=== PATIENT | male | born 1990 | race American Indian/Alaskan Native ===

== ENCOUNTER 2020-07-14 19:45 | Emergency (ER) | payer BC ==
[2020-07-14] MEDS ORDERED: FLUORESCEIN 1 MG STRIP OP ONE (20:24)
[2020-07-14] MEDS ORDERED: TETRACAINE 0.5% OPHTH SOLN 4ML OU PRN (20:24)
--- NOTE | 2020-07-14 21:06 | Emergency Department Report ---
ED General Adult HPI - General Chief complaint: Eye Problems Stated complaint: SEVERE RT EYE PAIN Time Seen by Provider: 07/14/20 20:24 Source: patient Mode of arrival: Ambulatory Limitations: No Limitations - History of Present Illness Initial comments: 29-year-old -[place] male patient presents with complaints of right eye pain starting yesterday. Patient states while riding on the back of the [employer] at work, something flew in his eye and he began to rub it vigorously. He states he later developed pain and sensitivity to light. He rates his current pain is 8/10 in severity and states it improves when not exposed to light. He denies any drainage, vision changes, swelling, or headache. No past medical history per patient. He denies wearing contact lenses. -: Sudden - Related Data Previous Rx's Medication Instructions Recorded Last Taken Type Acetaminophen/Codeine [Tylenol 1 tab PO Q8H PRN #6 tab 07/14/20 Unknown Rx /Codeine # 3 tab] Erythromycin [Erythromycin Ophth 1 cm OU Q3H #1 tube 07/14/20 Unknown Rx Oint] Ibuprofen [Motrin 800 MG tab] 800 mg PO Q8HR PRN #20 tablet 07/14/20 Unknown Rx Allergies Allergy/AdvReac Type Severity Reaction Status Date / Time No Known Allergies Allergy Unverified 07/14/20 20:15 ED Review of Systems ROS: Stated complaint: SEVERE RT EYE PAIN Other details as noted in HPI Constitutional: denies: malaise Eyes: eye pain. denies: eye discharge, vision change ENT: denies: ear pain, throat pain, dental pain Hematological/Lymphatic: denies: swollen glands ED Past Medical Hx - Past Medical History Previous Medical History?: No - Surgical History Past Surgical History?: No - Social History Smoking Status: Never Smoker - Medications Home Medications: Home Medications Medication Instructions Recorded Confirmed Last Taken Type Acetaminophen/Codeine [Tylenol 1 tab PO Q8H PRN #6 tab 07/14/20 Unknown Rx /Codeine # 3 tab] Erythromycin [Erythromycin Ophth 1 cm OU Q3H #1 tube 07/14/20 Unknown Rx Oint] Ibuprofen [Motrin 800 MG tab] 800 mg PO Q8HR PRN #20 tablet 07/14/20 Unknown Rx ED Physical Exam - General Limitations: No Limitations General appearance: alert - Head Head exam: Present: atraumatic, normocephalic - Eye Eye exam: Present: PERRL, EOMI. Absent: scleral icterus, periorbital swelling - Expanded Eye Exam Expanded Eyelids: Normal Inspection: Right Sclera/Conjunctival: Injection: Right (1 mm corneal abrasion noted at approximately 9:00 on the iris; eyelid everted and swept and no foreign bodies noted; no exudate noted) - ENT ENT exam: Present: mucous membranes moist - Respiratory Respiratory exam: Absent: respiratory distress - Cardiovascular Cardiovascular Exam: Present: regular rate - Neurological Exam Neurological exam: Present: alert, oriented X3 - Psychiatric Psychiatric exam: Present: normal affect, normal mood - Skin Skin exam: Present: warm, dry, intact, normal color. Absent: rash ED Course Vital Signs 07/14/20 07/14/20 07/14/20 20:13 20:17 21:47 Temperature 98.6 F 98.6 F 98.7 F Pulse Rate 73 70 63 Respiratory 18 20 16 Rate Blood Pressure 151/92 151/92 151/84 O2 Sat by Pulse 96 96 99 Oximetry ED Medical Decision Making - Medical Decision Making 29-year-old -[place] male patient presents with complaints of right eye pain starting yesterday. Patient states while riding on the back of the [employer] at work, something flew in his eye and he began to rub it vigorously. He states he later developed pain and sensitivity to light. He rates his current pain is 8/10 in severity and states it improves when not exposed to light. He denies any drainage, vision changes, swelling, or headache. No past medical history per patient. He denies wearing contact lenses. Tiny corneal abrasion noted on Swenson lamp exam. Will treat with erythromycin and pain medication. Patient to follow-up with ophthalmology as needed. Discussed signs and symptoms that should prompt immediate return to the emergency department in detail with patient who verbalized understanding. He is well-appearing, his vitals are within normal limits, he is stable for discharge home. Critical care attestation.: If time is entered above; I have spent that time in minutes in the direct care of this critically ill patient, excluding procedure time. ED Disposition Clinical Impression: Right corneal abrasion, Elevated blood pressure reading without diagnosis of hypertension Disposition: - TO HOME OR SELFCARE Is pt being admited?: No Condition: Stable Instructions: Corneal Abrasion, Hypertension, Adult, [id number] Prescriptions: Erythromycin [Erythromycin Ophth Oint] 1 cm OU Q3H #1 tube Ibuprofen [Motrin 800 MG tab] 800 mg PO Q8HR PRN #20 tablet PRN Reason: pain Acetaminophen/Codeine [Tylenol /Codeine # 3 tab] 1 tab PO Q8H PRN #6 tab PRN Reason: Pain , Severe (7-10) Referrals: SHAHIDA CAMPOS MD [Staff Physician] - as needed [facility] [Provider Group] - 2-3 Days (Blood pressure recheck) Forms: Work/School Release Form(ED)
[2020-07-14] MEDS ORDERED: IBUPROFEN 800 MG TAB PO ONE (21:09)
[2020-07-14 21:48] VITALS: BP 151/84
== END 2020-07-14 22:30 | disposition home or self-care (01) ==
LOC: ED 19:45
DX: S05.01XA Injury of conjunctiva and corneal abrasion without foreign body, right eye, initial encounter (principal); R03.0 Elevated blood-pressure reading, without diagnosis of hypertension; Z79.1 Long term (current) use of non-steroidal anti-inflammatories (NSAID); Z79.2 Long term (current) use of antibiotics; Z79.899 Other long term (current) drug therapy; X58.XXXA Exposure to other specified factors, initial encounter; Y93.89 Activity, other specified; Y92.89 Other specified places as the place of occurrence of the external cause; Y99.8 Other external cause status